=== PATIENT | female | born 1955 | race African-American/Black ===

== ENCOUNTER → 2018-11-13 | Outpatient (CLI) | payer MEDICARE ==
--- NOTE | 2018-11-13 16:58 | RAD ---
Right knee radiograph 11/13/2018 12:39 PM INDICATION: Chronic right knee pain COMPARISON: None available. TECHNIQUE: 3 views of the right knee are provided including standing view. FINDINGS: There is no acute fracture or dislocation. There is moderate medial femorotibial joint space and along with subcortical sclerosis and marginal ossified ptosis. Mild lateral femorotibial joint with marginal osteophytosis and subcortical sclerosis. There is moderate to advanced patellofemoral joint space narrowing particularly involving the medial patellar facet with subcortical sclerosis and marginal osteophytosis. There is a moderate knee joint effusion. IMPRESSION: There is moderate to advanced osteoarthrosis of the right knee with moderate knee joint effusion. Electronically signed by: Kimmy Coates MD (11/13/2018 4:55 PM) [id number]
== END | disposition home or self-care (01) ==
LOC: DXRAD 12:26
PROVIDERS: ATTEND Orthopaedic Surgery
DX: M17.11 Unilateral primary osteoarthritis, right knee (principal); M25.461 Effusion, right knee; G89.29 Other chronic pain
CPT/HCPCS: 73562